=== PATIENT | female | born 1945 | race Caucasian/White ===

== ENCOUNTER 2016-05-27 09:40 | Inpatient (IN) | payer MEDICARE ==
[~2016-05-27] VITALS: Ht 167.6 cm; Wt 79.8 kg
[2016-05-27] VITALS (18 sets, daily range): BP systolic 151–213; BP diastolic 73–124; PULSE 53–173; RESP 18–24; TEMP 98.4–98.7; O2SAT 95–100
[~2016-05-27 09:40] MED LIST: CIPR500T4 PO; PYRI200T4 PO; SYNT25TA PO
[2016-05-27] MEDS ORDERED: MULTTAB67 PO (10:11)
[2016-05-27] MEDS ORDERED: FISHCAP4 PO (10:11)
[2016-05-27] MEDS ORDERED: LEVO.1 PO (10:11)
--- NOTE | 2016-05-27 10:11 | PD ---
HPI Chief Complaint: Chest Pain Time Seen by Provider: 10:04 Travel History International Travel<30 days: No Contact w/Intl Traveler<30days: No Traveled to known affect area: No History of Present Illness HPI 70-year-old female with history of hypothyroidism currently on Synthroid, presents to the ER today for substernal chest discomfort which she rates at a 3 out of 10, palpitations, lightheadedness. She states that she has had intermittent episodes in the past but he usually subsides on its own. She states that this episode did not subside. She does not know of any exacerbating or alleviating factors although episodes in the past had subsided when she relaxed. Modifying Factors: None Associated Signs & Symptoms: Palpitation, substernal chest discomfort, lightheadedness Risk Factors: None PFSH Past Medical History Diminished Hearing: No Thyroid Disease: Yes Social History Alcohol Use: No Tobacco Use: No Substance Use: No Allergies-Medications (Allergen,Severity, Reaction): Coded Allergies: No Known Allergies (Unverified , 05/27/16) Reported Meds & Prescriptions Reported Meds & Active Scripts Active Reported Multiple Vitamin 1 Tab 1 Tab PO DAILY Synthroid (Levothyroxine Sodium) 100 Mcg Tab 100 Mcg PO DAILY Review of Systems Except as stated in HPI: all other systems reviewed are Neg Physical Exam Narrative GENERAL: Elderly white female patient who is well-developed, awake, alert, in mild distress. SKIN: Focused skin assessment warm/dry. HEAD: Atraumatic. Normocephalic. EYES: Pupils equal and round. No scleral icterus. No injection or drainage. ENT: No nasal bleeding or discharge. Mucous membranes pink and moist. NECK: Trachea midline. No JVD. CARDIOVASCULAR: Fast and regular,. No murmur appreciated. Pulses are present and equal bilaterally. RESPIRATORY: No accessory muscle use. Clear to auscultation. Breath sounds equal bilaterally. GASTROINTESTINAL: Abdomen soft, non-tender, nondistended. Hepatic and splenic margins not palpable. MUSCULOSKELETAL: No obvious deformities. No clubbing. No cyanosis. No edema. NEUROLOGICAL: Awake and alert. No obvious cranial nerve deficits. Motor grossly within normal limits. Normal speech. PSYCHIATRIC: Appropriate mood and affect; insight and judgment normal. Data Data Last Documented VS Vital Signs Date Time Temp Pulse Resp B/P Pulse Ox O2 Delivery O2 Flow Rate FiO2 05/27/16 11:35 68 18 161/76 98 Nasal Cannula 2 05/27/16 09:41 98.4 Orders Electrocardiogram (05/27/16 10:04) Ckmb (Isoenzyme) Profile (05/27/16 10:04) Complete Blood Count With Diff (05/27/16 10:04) Comprehensive Metabolic Panel (05/27/16 10:04) Magnesium (Mg) (05/27/16 10:04) Prothrombin Time / Inr (Pt) (05/27/16 10:04) Act Partial Throm Time (Ptt) (05/27/16 10:04) Troponin I (05/27/16 10:04) Chest, Single Ap (05/27/16 10:04) Ecg Monitoring (05/27/16 10:04) Bilateral Bp Monitoring (05/27/16 10:04) Iv Access Insert/Monitor (05/27/16 10:04) Oximetry (05/27/16 10:04) Oxygen Administration (05/27/16 10:04) Sodium Chloride 0.9% Flush (Ns Flush) (05/27/16 10:15) Diltiazem Inj (Cardizem Inj) (05/27/16 10:15) Diltiazem Inj (Cardizem Inj) (05/27/16 10:15) Sodium Chloride 0.9% Flush (Ns Flush) (05/27/16 10:15) Admit Order (Ed Use Only) (05/27/16 11:49) Labs Laboratory Tests Test 05/27/16 10:05 White Blood Count 6.9 TH/MM3 Red Blood Count 5.16 MIL/MM3 Hemoglobin 14.7 GM/DL Hematocrit 44.6 % Mean Corpuscular Volume 86.6 FL Mean Corpuscular Hemoglobin 28.6 PG Mean Corpuscular Hemoglobin 33.0 % Concent Red Cell Distribution Width 13.4 % Platelet Count 248 TH/MM3 Mean Platelet Volume 8.3 FL Neutrophils (%) (Auto) 51.3 % Lymphocytes (%) (Auto) 35.8 % Monocytes (%) (Auto) 10.7 % Eosinophils (%) (Auto) 1.9 % Basophils (%) (Auto) 0.3 % Neutrophils # (Auto) 3.5 TH/MM3 Lymphocytes # (Auto) 2.5 TH/MM3 Monocytes # (Auto) 0.7 TH/MM3 Eosinophils # (Auto) 0.1 TH/MM3 Basophils # (Auto) 0.0 TH/MM3 CBC Comment DIFF FINAL Differential Comment Prothrombin Time 10.0 SEC Prothromb Time International 0.9 RATIO Ratio Activated Partial 26.8 SEC Thromboplast Time Sodium Level 139 MEQ/L Potassium Level 3.9 MEQ/L Chloride Level 103 MEQ/L Carbon Dioxide Level 28.1 MEQ/L Anion Gap 8 MEQ/L Blood Urea Nitrogen 15 MG/DL Creatinine 0.74 MG/DL Estimat Glomerular Filtration 77 ML/MIN Rate Random Glucose 102 MG/DL Calcium Level 9.5 MG/DL Magnesium Level 2.3 MG/DL Total Bilirubin 0.3 MG/DL Aspartate Amino Transf 20 U/L (AST/SGOT) Alanine Aminotransferase 25 U/L (ALT/SGPT) Alkaline Phosphatase 105 U/L Total Creatine Kinase 72 U/L Troponin I LESS THAN 0.02 NG/ML Total Protein 8.2 GM/DL Albumin 3.8 GM/DL MDM Medical Decision Making Medical Screen Exam Complete: Yes Emergency Medical Condition: Yes Medical Record Reviewed: Yes Interpretation(s) EKG shows atrial flutter with rapid ventricular response at a rate of 160 bpm. Laboratory Tests Test 05/27/16 10:05 Monocytes (%) (Auto) 10.7 % (0.0-8.0) Estimat Glomerular Filtration 77 ML/MIN (>89) Rate Troponin I LESS THAN 0.02 NG/ML (0.02-0.05) Last 24 hours Impressions Chest X-Ray 05/27/16 1004 Signed Impressions: Service Date/Time: Friday, May 27, 2016 10:09 - CONCLUSION: The lungs are clear. Salbador Garsia MD Repeat EKG shows normal sinus rhythm at a rate of 80 bpm with a right bundle branch block pattern. Differential Diagnosis Dysrhythmias versus ACS versus thyroid storm versus overmedication versus electrolyte abnormalities Narrative Course Patient was given Cardizem in the ER with resolution of tachycardia, patient was back in normal sinus rhythm at a rate of 80 bpm. Lab work did not indicate any significant electrolyte abnormalities or dehydration. At this point, my plan would be to admit the patient for further evaluation of dysrhythmia. Case was discussed with Dr. Jc for admission. Diagnosis Primary Impression: Atrial flutter with rapid ventricular response Admitting Information Admitting Physician Requests: Admit Soontharothai,Rewadee MD May 27, 2016 10:11
[2016-05-27] MEDS ORDERED: DILTIAZEM INJ 125 MG in SODIUM CHLORIDE 0.9% INJ 100 ML IV SCH (10:15)
[2016-05-27] MEDS ORDERED: DILTIAZEM HCL 25 MG/5 ML VIAL IV PUSH ONE (10:15)
[2016-05-27] MEDS ORDERED: SODIUM CHLORIDE 0.9% FLUSH 10 ML FLUSH IVF PRN ×2 (10:15)
[2016-05-27 10:37] LABS: AUTOMATED NEUTROPHIL # 3.5 TH/MM3 (1.8-7.7); BASOPHIL % 0.3 % (0.0-2.0); EOSINOPHIL # 0.1 TH/MM3 (0-0.4); EOSINOPHIL % 1.9 % (0.0-4.0); HEMATOCRIT 44.6 % (35.0-46.0); HEMO FLAGS DIFF FINAL; LYMPH % 35.8 % (9.0-44.0); LYMPHOCYTE # 2.5 TH/MM3 (1.0-4.8); MEAN CELL VOLUME 86.6 FL (80.0-100.0); MEAN CORPUSCULAR HEMOGLOBIN 28.6 PG (27.0-34.0); MONO % 10.7 % (0.0-8.0); NEUT % 51.3 % (16.0-70.0); PLATELET COUNT 248 TH/MM3 (150-450); RED BLOOD COUNT 5.16 MIL/MM3 (4.00-5.30); RED CELL DISTRIBUTION WIDTH 13.4 % (11.6-17.2); WHITE BLOOD COUNT 6.9 TH/MM3 (4.0-11.0)
[2016-05-27 10:46] LABS: APTT (PATIENT) 26.8 SEC (24.3-30.1); INTERNATIONAL NORMALIZED RATIO 0.9 RATIO
--- NOTE | 2016-05-27 10:49 | RADRPT ---
EXAM DATE/TIME: 05/27/2016 10:09 [facility] COMPARISON: No previous studies available for comparison. INDICATIONS : Chest pain MEDICAL HISTORY : None. SURGICAL HISTORY : None. ENCOUNTER: Initial ACUITY: 1 day PAIN SCORE: 5/10 LOCATION: Bilateral chest FINDINGS: A single view of the chest demonstrates the lungs to be symmetrically aerated without evidence of mas s, infiltrate or effusion. The cardiomediastinal contours are unremarkable. Osseous structures are intact. CONCLUSION: The lungs are clear. Salbador Garsia MD on May 27, 2016 at 10:47 Board Certified Radiologist. This report was verified electronically.
[2016-05-27 10:55] LABS: ANION GAP 8 MEQ/L (5-15); BICARBONATE 28.1 MEQ/L (21.0-32.0); BLOOD UREA NITROGEN 15 MG/DL (7-18); CHLORIDE 103 MEQ/L (98-107); GLOMERULAR FILTRATION RATE 77 ML/MIN (>89); MAGNESIUM 2.3 MG/DL (1.5-2.5); POTASSIUM 3.9 MEQ/L (3.5-5.1); SODIUM (NA) 139 MEQ/L (136-145)
[2016-05-27 11:00] LABS: ALKALINE PHOSPHATASE 105 U/L (45-117); ALT (GPT) 25 U/L (10-53); AST (GOT) 20 U/L (15-37); CREATINE KINASE 72 U/L (26-192); TOTAL BILIRUBIN ADULT 0.3 MG/DL (0.2-1.0)
[2016-05-27] MEDS ORDERED: ALUMINUM/MAGNESIUM/SIMETH 30 ML CUP PO PRN (12:00)
[2016-05-27] MEDS ORDERED: TEMAZEPAM 15 MG CAP PO PRN (12:00)
[2016-05-27] MEDS ORDERED: ONDANSETRON HCL 4 MG/2 ML VIAL IV PRN (12:00)
[2016-05-27] MEDS ORDERED: ACETAMINOPHEN 325 MG TAB PO PRN (12:00)
[2016-05-27] MEDS ORDERED: SODIUM CHLORIDE 0.9% FLUSH 10 ML FLUSH IV FLUSH PRN (12:00)
[2016-05-27] MEDS ORDERED: DOCUSATE SODIUM 100 MG CAP PO PRN (12:00)
[2016-05-27] MEDS ORDERED: RESP: ALBUTEROL 2.5 MG/IPRATROPIUM 0.5 MG NEB (PRN) NEB (12:15)
[2016-05-27] MEDS: ENOXAPARIN SODIUM 40 MG/0.4 ML SYRINGE SQ SCH (12:50)
--- NOTE | 2016-05-27 13:22 | HHI.HP ---
[facility] Service [facility] Primary Care Physician Vel Pandey MD Admission Diagnosis new onset atrial flutter with rapid ventricular response Diagnoses: (1) Atrial flutter with rapid ventricular response (2) Hypertensive emergency (3) Hypothyroidism Chief Complaint: Heart palpitation and chest tightness Travel History International Travel<30 Days: No Contact w/Intl Traveler <30 Da: No Traveled to Known Affected Are: No History of Present Illness Everyone year-old female with a history of hypothyroidism presented to the ED for evaluation of an acute onset of worsening heart palpitations associated with chest tightness, diaphoresis and headache. Patient reports history of occasional heart palpitation however those seem to resolved on their own until today when patient had breakfast then she started feeling her heart racing associated with chest tightness rated 3/10 in intensity. She then decided to check her blood pressure, which she found to be elevated with systolic of 176. Last blood pressure check less than 2 weeks ago was 120/80s obtained with a new blood pressure device. She denies any GI bleed. Review of Systems Other 12 systems reviewed and are negative except for the one mentioned in history of present illness Past Family Social History Past Medical History Hypothyroidism Past Surgical History Tubal ligation Reported Medications Synthroid Allergies: Coded Allergies: No Known Allergies (Unverified , 05/27/16) Family History Strong family history of heart disease for mom and sister with pacemaker implantation Social History She denies tobacco, alcohol or illicit drug intake Physical Exam Vital Signs Vital Signs Date Time Temp Pulse Resp B/P Pulse Ox O2 Delivery O2 Flow Rate FiO2 05/27/16 12:30 62 18 158/85 98 Nasal Cannula 2 05/27/16 12:01 65 18 151/76 98 Nasal Cannula 2 05/27/16 11:35 68 18 161/76 98 Nasal Cannula 2 05/27/16 11:03 180/92 05/27/16 10:09 99 Nasal Cannula 2 05/27/16 10:07 159 21 208/122 Nasal Cannula 2 213/124 05/27/16 10:07 99 Nasal Cannula 2 05/27/16 09:56 98 Room Air 2 05/27/16 09:41 98.4 173 24 213/124 97 Physical Exam GENERAL: This is a well-nourished, well-developed patient, in no apparent distress. SKIN: No rashes, ecchymoses or lesions. Cool and dry. HEAD: Atraumatic. Normocephalic. No temporal or scalp tenderness. EYES: Pupils equal round and reactive. Extraocular motions intact. No scleral icterus. No injection or drainage. ENT: Nose without bleeding, purulent drainage or septal hematoma. Throat without erythema, tonsillar hypertrophy or exudate. Uvula midline. Airway patent. NECK: Trachea midline. No JVD or lymphadenopathy. Supple, nontender, no meningeal signs. CARDIOVASCULAR: Irregular Regular rate and rhythm without murmurs, gallops, or rubs. RESPIRATORY: Clear to auscultation. Breath sounds equal bilaterally. No wheezes , rales, or rhonchi. GASTROINTESTINAL: Abdomen soft, non-tender, nondistended. No hepato-splenomegaly , or palpable masses. No guarding. MUSCULOSKELETAL: Extremities without clubbing, cyanosis, or edema. No joint tenderness, effusion, or edema noted. No calf tenderness. Negative Homans sign bilaterally. NEUROLOGICAL: Awake and alert. Cranial nerves II through XII intact. Motor and sensory grossly within normal limits. Five out of 5 muscle strength in all muscle groups. Normal speech. Laboratory Laboratory Tests Test 05/27/16 10:05 White Blood Count 6.9 Red Blood Count 5.16 Hemoglobin 14.7 Hematocrit 44.6 Mean Corpuscular Volume 86.6 Mean Corpuscular Hemoglobin 28.6 Mean Corpuscular Hemoglobin 33.0 Concent Red Cell Distribution Width 13.4 Platelet Count 248 Mean Platelet Volume 8.3 Neutrophils (%) (Auto) 51.3 Lymphocytes (%) (Auto) 35.8 Monocytes (%) (Auto) 10.7 Eosinophils (%) (Auto) 1.9 Basophils (%) (Auto) 0.3 Neutrophils # (Auto) 3.5 Lymphocytes # (Auto) 2.5 Monocytes # (Auto) 0.7 Eosinophils # (Auto) 0.1 Basophils # (Auto) 0.0 CBC Comment DIFF FINAL Differential Comment Prothrombin Time 10.0 Prothromb Time International 0.9 Ratio Activated Partial 26.8 Thromboplast Time Sodium Level 139 Potassium Level 3.9 Chloride Level 103 Carbon Dioxide Level 28.1 Anion Gap 8 Blood Urea Nitrogen 15 Creatinine 0.74 Estimat Glomerular Filtration 77 Rate Random Glucose 102 Calcium Level 9.5 Magnesium Level 2.3 Total Bilirubin 0.3 Aspartate Amino Transf 20 (AST/SGOT) Alanine Aminotransferase 25 (ALT/SGPT) Alkaline Phosphatase 105 Total Creatine Kinase 72 Troponin I LESS THAN 0.02 Total Protein 8.2 Albumin 3.8 Result Diagram: 05/27/16 1005 05/27/16 1005 Imaging Last Impressions Chest X-Ray 05/27/16 1004 Signed Impressions: Service Date/Time: Friday, May 27, 2016 10:09 - CONCLUSION: The lungs are clear. Salbador Garsia MD Assessment and Plan Problem List: (1) Atrial flutter with rapid ventricular response ICD Code: I48.92 Status: Acute (2) Hypertensive emergency ICD Code: I16.1 Status: Acute (3) Hypothyroidism ICD Code: E03.9 Status: Acute Assessment and Plan 70-year-old female with Atrial flutter with rapid ventricular response: Chest x-ray noted and reviewed by me without any other pulmonary disease. Rule out ACS per protocol with serial cardiac enzyme and EKG. Check TSH and free T4. Currently on Cardizem drip however patient is currently rate control therefore will discontinue it Check 2-D echo. Consult cardiology as patient with [id number] and will need to be on oral anticoagulation. Check lipid profile Hypertensive emergency: On Arrival patient with BP of 213/124 however now improved with BP 158/85; will start oral antihypertensive medication Lopressor 50 mg by mouth twice a day tonight. Check lipid profile as well as hemoglobin A1c History of hypothyroidism: Check TSH and free T4, resume Synthroid and adjust dose accordingly DVT prophylaxis: Lovenox Code Status Full code Discussed Condition With Patient Physician Certification 2 Midnight Certification Type: Admission for Inpatient Services Order for Inpatient Services The services are ordered in accordance with Medicare regulations or non- Medicare payer requirements, as applicable. In the case of services not specified as inpatient-only, they are appropriately provided as inpatient services in accordance with the 2-midnight benchmark. Estimated LOS (days): 2 days is the estimated time the patient will need to remain in the hospital, assuming treatment plan goals are met and no additional complications. Post-Hospital Plan: Not yet determined Oc Jc MD May 27, 2016 13:21
[2016-05-27] MEDS ORDERED: hydrALAZINE HCL 20 MG/ML VIAL IV PUSH PRN (14:15)
--- NOTE | 2016-05-27 14:34 | EKG ---
Date Performed: 05/27/2016 Time Performed: 10:00:47 PTAGE: 70 years EKG: Supraventricular tachycardia RIGHT bundle branch block Nonspecific ST-T wave changes NO PREVIOUS TRACING DOCTOR: Salvatore Bashir Interpretating Date/Time 05/27/2016 14:33:44
--- NOTE | 2016-05-27 16:50 | EC ---
Study Study Date:05/27/2016 STUDY CONCLUSIONS SUMMARY LEFT VENTRICLE: The cavity size was normal. Wall thickness was normal. Systolic function was normal. The estimated ejection fraction was in the range of 60% to 65%. Wall motion was normal; there were no regional wall motion abnormalities. If LV function is below 40, please consider prescribing an ACEI or ARB or document rationale for non-use. PROCEDURE DATA STUDY STATUS: Elective. Procedure: Transthoracic echocardiography. Image quality was good. Scanning was performed from the parasternal, apical, and subcostal acoustic windows. Study completion: The patient tolerated the procedure well. Transthoracic echocardiography. M-mode, complete 2D, complete spectral Doppler, and color Doppler. Patient status: Inpatient. CARDIAC ANATOMY LEFT VENTRICLE: The cavity size was normal. Wall thickness was normal. Systolic function was normal. The estimated ejection fraction was in the range of 60% to 65%. Wall motion was normal; there were no regional wall motion abnormalities. AORTIC VALVE: Trileaflet; normal thickness leaflets. Doppler: Transvalvular velocity was within the normal range. There was no stenosis. No regurgitation. Mean gradient: 11mm Hg (S). Peak gradient: 22mm Hg (S). AORTA: Aortic root: The aortic root was normal in size. MITRAL VALVE: Structurally normal valve. Doppler: Transvalvular velocity was within the normal range. There was no evidence for stenosis. No regurgitation. Peak gradient: 2mm Hg (D). LEFT ATRIUM: The atrium was normal in size. RIGHT VENTRICLE: The cavity size was normal. Wall thickness was normal. PULMONIC VALVE: Doppler: Transvalvular velocity was within the normal range. There was no evidence for stenosis. No regurgitation. TRICUSPID VALVE: Structurally normal valve. Doppler: Transvalvular velocity was within the normal range. No regurgitation. PULMONARY ARTERY: The main pulmonary artery was normal-sized. Systolic pressure was within the normal range. RIGHT ATRIUM: The atrium was normal in size. PERICARDIUM: There was no pericardial effusion. SYSTEMIC VEINS: Inferior vena cava: The vessel was normal in size. BASIC MEASUREMENTS ADULT Normal Left ventricle LV internal dimension, ED, chordal level, *54.5 mm 43-52 PLAX LV internal dimension, ES, chordal level, 37.2 mm 23-38 PLAX Fractional shortening, chordal level, PLAX 32 % >29 LV posterior wall thickness, ED 8.17 mm IVS/LVPW ratio, ED *1.31 <1.3 Ventricular septum Septal thickness, ED 10.7 mm Aortic valve Leaflet separation 19 mm 15-26 Left atrium Anterior-posterior dimension 38 mm Right ventricle RV internal dimension, ED, PLAX 19.5 mm 19-38 BASIC MEASUREMENTS ADULT Normal Aortic valve Leaflet separation 19 mm 15-26 Aorta Root diameter, ED 28 mm 20-37 DOPPLER MEASUREMENTS ADULT Normal Main pulmonary artery Pressure, S 24 mm Hg =30 Aortic valve Peak velocity, S 236 cm/s Mean velocity, S 145 cm/s VTI, S 47.1 cm Mean gradient, S 11 mm Hg Peak gradient, S 22 mm Hg Mitral valve Peak E-wave velocity 71 cm/s Peak A-wave velocity 84.5 cm/s Peak gradient, D 2 mm Hg Peak E/A ratio 0.8 Tricuspid valve Regurgitant peak velocity 191 cm/s Peak RV-RA gradient, S 15 mm Hg Maximal regurgitant velocity 191 cm/s Systemic veins Estimated CVP 5 mm Hg Right ventricle RV pressure, S 24 mm Hg <30 LEGEND: Mean values are shown as u=mean value. Asterisk (*) salas values outside specified normal range. Prepared and signed by Jaleesa Hernandez [id number]
--- NOTE | 2016-05-27 19:07 | MB ---
cc: MICHAEL SPAULDING MD DATE OF CONSULTATION 05/27/16 HISTORY OF PRESENT ILLNESS Ms. Carson is a 70 year old white female with a history of hypothyroidism. She developed palpitation associated with chest tightness and diaphoresis, generalized weakness and headache. She came to the emergency room. She was found to have severe hypertension and was in atrial flutter with rapid ventricular response. She was given IV Diltiazem and spontaneously converted to sinus rhythm. Her symptoms improved after she converted, but she remained hypertensive and has required antihypertensive therapy. She still complains of headache. PAST MEDICAL HISTORY 1. Hypothyroidism. No history of hypertension, dyslipidemia, coronary artery disease or cerebrovascular accident. 2. History of tubal ligation MEDICATIONS Synthroid ALLERGIES None. SOCIAL HISTORY The patient does not smoke. She does not drink alcohol. FAMILY HISTORY Positive for pacemaker placement in both her mother and sister. REVIEW OF SYSTEMS Otherwise negative. PHYSICAL EXAMINATION VITAL SIGNS: Blood pressure 161/72, pulse 92 and regular. HEENT: Negative, 2+ carotid upstrokes, no bruits. LUNGS: Clear. HEART: Regular with no murmurs, rubs or gallops ABDOMEN: Soft, no bruits. EXTREMITIES: Without edema, 2+ distal pulses. NEUROLOGIC: Grossly nonfocal. CARDIOLOGY STUDIES Electrocardiogram initially showed atrial flutter with 2:1 block and right bundle branch block. Follow up electrocardiogram showed sinus rhythm and right bundle branch block. LABORATORY DATA Hemoglobin 14.7, potassium 3.9, creatinine 0.7, magnesium 2.3, AST and ALT normal. CK 72, troponin less than 0.02. DIAGNOSES 1. Paroxysmal atrial flutter with rapid ventricular response. 2. Unspecified angina 3. Hypertensive emergency 4. Hypothyroidism DISPOSITION Ms. Carson will be monitored on telemetry with serial enzymes and electrocardiograms. We will obtain echocardiogram to evaluate her left ventricular function. We will check thyroid function since she is on thyroid replacement. I recommend to start anticoagulation with a novel anticoagulant (Xarelto). This can be started once her blood pressure is better controlled. I recommend to titrate antihypertensive therapy; Lopressor will be started tonight. I will follow Ms. Carson for cardiology during her hospitalization. I will also see her back for followup in our office after discharge. MD MARKY Owusu/ /4:21 PM /6:55 PM CARMEL
[2016-05-27] MEDS: METOPROLOL TARTRATE 50 MG TAB PO SCH (20:49)
[2016-05-27] MEDS: SODIUM CHLORIDE 0.9% FLUSH 10 ML FLUSH IV FLUSH SCH (20:49)
[2016-05-27 23:50] LABS: FREE T4 1.15 NG/DL (0.76-1.46)
[2016-05-28] VITALS (24 sets, daily range): BP systolic 126–163; BP diastolic 64–79; PULSE 42–96; RESP 14–18; TEMP 97.3–98.8; O2SAT 95–98
--- NOTE | 2016-05-28 00:02 | EKG ---
Date Performed: 05/27/2016 Time Performed: 10:57:31 PTAGE: 70 years EKG: Sinus rhythm RIGHT BUNDLE BRANCH BLOCK MARKED T-WAVE ABNORMALITY, CONSIDER ANTEROLATERAL ISCHEMIA ABNORMAL ECG PREVIOUS TRACING : 05/27/2016 10.00 Compared to the previous tracing, previously aflutter with rapid ventricular response, ST/T wave changes are now more prominent DOCTOR: Shay Fiore Interpretating Date/Time 05/28/2016 00:00:25
[2016-05-28 06:18] LABS: HEMATOCRIT 39.8 % (35.0-46.0); MEAN CELL VOLUME 86.6 FL (80.0-100.0); MEAN CORPUSCULAR HEMOGLOBIN 29.3 PG (27.0-34.0); MEAN CORPUSCULAR HGB CONC 33.9 % (32.0-36.0); PLATELET COUNT 277 TH/MM3 (150-450); RED CELL DISTRIBUTION WIDTH 13.4 % (11.6-17.2); REVIEW FLAG FINAL
[2016-05-28] MEDS: LEVOTHYROXINE SODIUM 100 MCG TAB PO SCH (06:29)
[2016-05-28 06:47] LABS: LDL CHOLESTEROL 142 MG/DL (0-99)
[2016-05-28] MEDS: MULTIVITAMIN TAB PO SCH (09:09)
[2016-05-28] MEDS: SODIUM CHLORIDE 0.9% FLUSH 10 ML FLUSH IV FLUSH SCH ×2 (09:09→21:00)
[2016-05-28] MEDS: METOPROLOL TARTRATE 50 MG TAB PO SCH (09:09)
--- NOTE | 2016-05-28 13:23 | HHI.PR ---
Subjective Remarks Follow-up atrial fibrillation with RVR/benign labile hypertension 05/28/16-patient seen and examined, denies any chest pain or heart palpitation. Bradycardia however asymptomatic Objective Vitals Vital Signs Date Time Temp Pulse Resp B/P Pulse Ox O2 Delivery O2 Flow Rate FiO2 05/28/16 12:00 54 05/28/16 12:00 98.6 48 18 139/64 98 05/28/16 11:10 58 05/28/16 10:00 51 05/28/16 09:00 96 05/28/16 08:09 56 05/28/16 08:09 98.5 50 18 144/73 98 05/28/16 07:00 48 05/28/16 06:00 46 05/28/16 05:00 62 05/28/16 04:00 98.8 52 18 126/74 95 05/28/16 04:00 46 05/28/16 03:00 70 05/28/16 02:00 52 05/28/16 01:00 52 05/28/16 00:00 58 05/28/16 00:00 98.4 59 14 139/78 96 05/27/16 23:00 53 05/27/16 22:00 60 05/27/16 21:00 78 05/27/16 20:00 98.6 85 22 155/73 95 05/27/16 20:00 84 05/27/16 19:00 107 05/27/16 17:00 76 05/27/16 16:00 88 05/27/16 16:00 98.4 83 18 158/73 98 05/27/16 15:00 90 05/27/16 14:50 92 18 161/74 99 05/27/16 14:00 98.7 92 18 183/89 100 I/O 05/27/16 05/27/16 05/27/16 05/28/16 05/28/16 05/28/16 07:00 15:00 23:00 07:00 15:00 23:00 Intake Total 240 ml Output Total 300 ml Balance -60 ml Intake Oral 240 ml Output Urine Total 300 ml Result Diagram: 05/28/16 0555 05/27/16 1005 Imaging Last Impressions Chest X-Ray 05/27/16 1004 Signed Impressions: Service Date/Time: Friday, May 27, 2016 10:09 - CONCLUSION: The lungs are clear. Salbador Garsia MD Objective Remarks GENERAL: NAD SKIN: Warm and dry. HEAD: Normocephalic. EYES: No scleral icterus. No injection or drainage. NECK: Supple, trachea midline. No JVD or lymphadenopathy. CARDIOVASCULAR: Irregular Regular rate and rhythm without murmurs, gallops, or rubs. RESPIRATORY: Breath sounds equal bilaterally. No accessory muscle use. GASTROINTESTINAL: Abdomen soft, non-tender, nondistended. MUSCULOSKELETAL: No cyanosis, or edema. BACK: Nontender without obvious deformity. No CVA tenderness. A/P Problem List: (1) Atrial flutter with rapid ventricular response ICD Code: I48.92 Status: Acute (2) Hypertensive emergency ICD Code: I16.1 Status: Resolved (3) Hypothyroidism ICD Code: E03.9 Status: Chronic (4) Hyperlipidemia ICD Code: E78.5 Status: Acute (5) Benign hypertension ICD Code: I10 Status: Acute Assessment and Plan 70-year-old female with Paroxysmal Atrial fibrillation /flutter with rapid ventricular response: s/p Cardizem drip . Currently on Lopressor 50 mg by mouth twice a day however patient with bradycardia although asymptomatic. cardiology ff .patient with [id number] and patient will need OAC likely Xarelto. 2-D echo with EF of 60 -% Hypertensive emergency: Resolved and currently on Lopressor 50 mg by mouth twice . However secondary to bradycardia would adjust medication accordingly. Hyperlipidemia: LDL 142 therefore will Start Lipitor 20 mg at bedtime tonight History of hypothyroidism: TSH and free T4 wnl, continue Synthroid DVT prophylaxis: Oc Keen MD May 28, 2016 13:23
[2016-05-28] MEDS: ENOXAPARIN SODIUM 40 MG/0.4 ML SYRINGE SQ SCH (13:42)
--- NOTE | 2016-05-28 15:55 | PD.CARD.PN ---
Subjective Subjective Remarks No CP or SOB, feels much better Objective Medications Current Medications Medications (Trade) Dose Ordered Sig/Germain Route Start Time Stop Time Status Last Admin (NS Flush) 2 ml UNSCH PRN IV FLUSH 05/27/16 12:00 (NS Flush) 2 ml BID IV FLUSH 05/27/16 21:00 05/28/16 09:09 (Lovenox Inj) 40 mg Q24H SQ 05/27/16 13:00 05/28/16 13:42 (Tylenol) 650 mg Q4H PRN PO 05/27/16 12:00 (Zofran Inj) 4 mg Q6H PRN IV 05/27/16 12:00 (Colace) 100 mg BID PRN PO 05/27/16 12:00 (Mag-Al Plus Susp Liq) 30 ml Q6H PRN PO 05/27/16 12:00 (Restoril) 15 mg HS PRN PO 05/27/16 12:00 (Synthroid) 100 mcg DAILY@0600 PO 05/28/16 06:00 05/28/16 06:29 (Theragran) 1 tab DAILY PO 05/28/16 09:00 05/28/16 09:09 (Lopressor) 50 mg Q12HR PO 05/27/16 21:00 05/28/16 09:09 (Apresoline Inj) 20 mg Q4H PRN IV PUSH 05/27/16 14:15 05/27/16 14:25 (Lipitor) 20 mg HS PO 05/28/16 21:00 Vital Signs / I&O Vital Signs Date Time Temp Pulse Resp B/P Pulse Ox O2 Delivery O2 Flow Rate FiO2 05/28/16 15:00 45 05/28/16 14:04 46 05/28/16 13:00 48 05/28/16 12:00 54 05/28/16 12:00 98.6 48 18 139/64 98 05/28/16 11:10 58 05/28/16 10:00 51 05/28/16 09:00 96 05/28/16 08:09 56 05/28/16 08:09 98.5 50 18 144/73 98 05/28/16 07:00 48 05/28/16 06:00 46 05/28/16 05:00 62 05/28/16 04:00 98.8 52 18 126/74 95 05/28/16 04:00 46 05/28/16 03:00 70 05/28/16 02:00 52 05/28/16 01:00 52 05/28/16 00:00 58 05/28/16 00:00 98.4 59 14 139/78 96 05/27/16 23:00 53 05/27/16 22:00 60 05/27/16 21:00 78 05/27/16 20:00 98.6 85 22 155/73 95 05/27/16 20:00 84 05/27/16 19:00 107 05/27/16 17:00 76 05/27/16 16:00 88 05/27/16 16:00 98.4 83 18 158/73 98 I/O 05/27/16 05/27/16 05/27/16 05/28/16 05/28/16 05/28/16 07:00 15:00 23:00 07:00 15:00 23:00 Intake Total 240 ml Output Total 300 ml Balance -60 ml Intake Oral 240 ml Output Urine Total 300 ml Physical Exam GENERAL: In NAD SKIN: Warm and dry. HEAD: Normocephalic. EYES: No scleral icterus. No injection or drainage. NECK: Supple, trachea midline. No JVD or lymphadenopathy. CARDIOVASCULAR: Regular rate and rhythm without murmurs, gallops, or rubs. RESPIRATORY: Breath sounds equal bilaterally. No accessory muscle use. GASTROINTESTINAL: Abdomen soft, non-tender, nondistended. MUSCULOSKELETAL: No cyanosis, or edema. Laboratory Laboratory Tests Test 05/27/16 05/27/16 05/28/16 17:50 22:34 05:55 Total Creatine Kinase 72 U/L 62 U/L Troponin I 0.05 NG/ML 0.06 NG/ML Free Thyroxine 1.15 NG/DL Thyroid Stimulating Hormone 1.280 uIU/ML 3rd Gen White Blood Count 7.0 TH/MM3 Red Blood Count 4.60 MIL/MM3 Hemoglobin 13.5 GM/DL Hematocrit 39.8 % Mean Corpuscular Volume 86.6 FL Mean Corpuscular Hemoglobin 29.3 PG Mean Corpuscular Hemoglobin 33.9 % Concent Red Cell Distribution Width 13.4 % Platelet Count 277 TH/MM3 Mean Platelet Volume 8.4 FL Triglycerides Level 118 MG/DL Cholesterol Level 228 MG/DL LDL Cholesterol 142 MG/DL HDL Cholesterol 62.0 MG/DL Cholesterol/HDL Ratio 3.67 RATIO Imaging Last Impressions Chest X-Ray 05/27/16 1004 Signed Impressions: Service Date/Time: Friday, May 27, 2016 10:09 - CONCLUSION: The lungs are clear. Salbador Garsia MD Assessment and Plan Problem List: (1) Atrial flutter with rapid ventricular response (2) Hypertensive emergency (3) Hypothyroidism (4) Hyperlipidemia (5) Angina pectoris, unspecified Assessment and Plan Stays in SR, bradycardic and hypertensive. Decrease metoprolol, add amlodipine. Start anticoagulation with Xarelto. Increase activity. Aggressive risk factor modification. Home tomorrow if stable. Will schedule nuc ST as outpatient. Ricardo Alvarez MD May 28, 2016 15:55
[2016-05-28 16:41] LABS: HEMOGLOBIN A1b 0.8 %; HEMOGLOBIN Ao 85.8 %; HEMOGLOBIN F 1.4 %; HEMOGLOBIN LA1C 1.8 %; HEMOGLOBIN P3 3.5 %
[2016-05-28] MEDS ORDERED: ATORVASTATIN 20 MG TAB PO SCH ×2 (21:00)
[2016-05-28] MEDS: METOPROLOL TARTRATE 25 MG TAB PO SCH (21:00)
[2016-05-29] VITALS (15 sets, daily range): BP systolic 114–154; BP diastolic 60–75; PULSE 40–54; RESP 18; TEMP 97.3–98.3; O2SAT 97–99
[2016-05-29] MEDS: LEVOTHYROXINE SODIUM 100 MCG TAB PO SCH (05:16)
[2016-05-29] MEDS: MULTIVITAMIN TAB PO SCH (08:52)
[2016-05-29] MEDS: METOPROLOL TARTRATE 25 MG TAB PO SCH (08:53)
[2016-05-29] MEDS: SODIUM CHLORIDE 0.9% FLUSH 10 ML FLUSH IV FLUSH SCH (08:54)
[2016-05-29] MEDS ORDERED: RIVAROXABAN 20 MG TAB PO SCH (09:00)
--- NOTE | 2016-05-29 09:45 | PD.CARD.PN ---
Subjective Subjective Remarks No CP, SOB, or dizziness, feels fine Objective Medications Current Medications Medications (Trade) Dose Ordered Sig/Germain Route Start Time Stop Time Status Last Admin (NS Flush) 2 ml UNSCH PRN IV FLUSH 05/27/16 12:00 (NS Flush) 2 ml BID IV FLUSH 05/27/16 21:00 05/29/16 08:54 (Tylenol) 650 mg Q4H PRN PO 05/27/16 12:00 (Zofran Inj) 4 mg Q6H PRN IV 05/27/16 12:00 (Colace) 100 mg BID PRN PO 05/27/16 12:00 (Mag-Al Plus Susp Liq) 30 ml Q6H PRN PO 05/27/16 12:00 (Restoril) 15 mg HS PRN PO 05/27/16 12:00 (Synthroid) 100 mcg DAILY@0600 PO 05/28/16 06:00 05/29/16 05:16 (Theragran) 1 tab DAILY PO 05/28/16 09:00 05/29/16 08:52 (Apresoline Inj) 20 mg Q4H PRN IV PUSH 05/27/16 14:15 05/27/16 14:25 (Lopressor) 25 mg Q12HR PO 05/28/16 21:00 (Norvasc) 10 mg DAILY PO 05/28/16 16:00 05/29/16 08:52 (Lipitor) 80 mg HS PO 05/28/16 21:00 05/28/16 21:13 (Xarelto) 20 mg DAILY PO 05/29/16 09:00 05/29/16 08:52 Vital Signs / I&O Vital Signs Date Time Temp Pulse Resp B/P Pulse Ox O2 Delivery O2 Flow Rate FiO2 05/29/16 08:42 98 05/29/16 08:30 52 05/29/16 08:30 98.2 52 18 154/72 98 05/29/16 07:00 54 05/29/16 06:04 44 05/29/16 05:00 42 05/29/16 04:47 97.7 49 114/60 97 05/29/16 04:00 42 05/29/16 03:49 45 05/29/16 02:00 42 05/29/16 01:00 44 05/29/16 00:00 40 05/29/16 00:00 97.3 49 129/71 97 05/28/16 23:00 97.3 49 129/71 97 05/28/16 23:00 42 05/28/16 22:00 44 05/28/16 21:00 48 05/28/16 20:00 50 05/28/16 19:00 49 05/28/16 19:00 98.7 52 134/66 96 05/28/16 18:00 51 05/28/16 17:00 44 05/28/16 16:00 44 05/28/16 16:00 98.7 45 18 163/79 98 05/28/16 15:00 45 05/28/16 14:04 46 05/28/16 13:00 48 05/28/16 12:00 54 05/28/16 12:00 98.6 48 18 139/64 98 05/28/16 11:10 58 05/28/16 10:00 51 I/O 05/28/16 05/28/16 05/28/16 05/29/16 05/29/16 05/29/16 07:00 15:00 23:00 07:00 15:00 23:00 Intake Total 240 ml 1080 ml 240 ml Output Total 300 ml 1200 ml 900 ml Balance -60 ml -120 ml -660 ml Intake Oral 240 ml 1080 ml 240 ml Output Urine Total 300 ml 1200 ml 900 ml Physical Exam GENERAL: In NAD SKIN: Warm and dry. HEAD: Normocephalic. EYES: No scleral icterus. No injection or drainage. NECK: Supple, trachea midline. No JVD or lymphadenopathy. CARDIOVASCULAR: Regular rate and rhythm without murmurs, gallops, or rubs. RESPIRATORY: Breath sounds equal bilaterally. No accessory muscle use. GASTROINTESTINAL: Abdomen soft, non-tender, nondistended. MUSCULOSKELETAL: No cyanosis, or edema. Laboratory Laboratory Tests Test 05/27/16 05/27/16 05/28/16 10:05 22:34 05:55 Neutrophils (%) (Auto) 51.3 % Lymphocytes (%) (Auto) 35.8 % Monocytes (%) (Auto) 10.7 % Eosinophils (%) (Auto) 1.9 % Basophils (%) (Auto) 0.3 % Neutrophils # (Auto) 3.5 TH/MM3 Lymphocytes # (Auto) 2.5 TH/MM3 Monocytes # (Auto) 0.7 TH/MM3 Eosinophils # (Auto) 0.1 TH/MM3 Basophils # (Auto) 0.0 TH/MM3 CBC Comment DIFF FINAL Differential Comment Prothrombin Time 10.0 SEC Prothromb Time International 0.9 RATIO Ratio Activated Partial 26.8 SEC Thromboplast Time Sodium Level 139 MEQ/L Potassium Level 3.9 MEQ/L Chloride Level 103 MEQ/L Carbon Dioxide Level 28.1 MEQ/L Anion Gap 8 MEQ/L Blood Urea Nitrogen 15 MG/DL Creatinine 0.74 MG/DL Estimat Glomerular Filtration 77 ML/MIN Rate Random Glucose 102 MG/DL Calcium Level 9.5 MG/DL Magnesium Level 2.3 MG/DL Total Bilirubin 0.3 MG/DL Aspartate Amino Transf 20 U/L (AST/SGOT) Alanine Aminotransferase 25 U/L (ALT/SGPT) Alkaline Phosphatase 105 U/L Total Protein 8.2 GM/DL Albumin 3.8 GM/DL Total Creatine Kinase 62 U/L Troponin I 0.06 NG/ML Free Thyroxine 1.15 NG/DL Thyroid Stimulating Hormone 1.280 uIU/ML 3rd Gen White Blood Count 7.0 TH/MM3 Red Blood Count 4.60 MIL/MM3 Hemoglobin 13.5 GM/DL Hematocrit 39.8 % Mean Corpuscular Volume 86.6 FL Mean Corpuscular Hemoglobin 29.3 PG Mean Corpuscular Hemoglobin 33.9 % Concent Red Cell Distribution Width 13.4 % Platelet Count 277 TH/MM3 Mean Platelet Volume 8.4 FL Hemoglobin A1c 5.3 % Triglycerides Level 118 MG/DL Cholesterol Level 228 MG/DL LDL Cholesterol 142 MG/DL HDL Cholesterol 62.0 MG/DL Cholesterol/HDL Ratio 3.67 RATIO Imaging Last Impressions Chest X-Ray 05/27/16 1004 Signed Impressions: Service Date/Time: Friday, May 27, 2016 10:09 - CONCLUSION: The lungs are clear. Salbador Garsia MD Assessment and Plan Problem List: (1) Atrial flutter with rapid ventricular response (2) Hypertensive emergency (3) Hypothyroidism (4) Hyperlipidemia (5) Angina pectoris, unspecified Assessment and Plan Stays in SR, mild SB. Continue metoprolol and amlodipine. Started anticoagulation with Xarelto. Increase activity. Aggressive risk factor modification. OK to discharge home today. Will schedule nuc ST as outpatient. Quadrat,Otakar MD May 29, 2016 09:45
[2016-05-29] MEDS ORDERED: AMLO10 PO (12:06)
[2016-05-29] MEDS ORDERED: METO25TA3 PO (12:06)
[2016-05-29] MEDS ORDERED: XARE20TA PO (12:06)
[2016-05-29] MEDS ORDERED: ATOR20TA15 PO (12:06)
--- NOTE | 2016-05-29 12:10 | HHI.PR ---
Subjective Remarks Follow-up atrial fibrillation with RVR/benign labile hypertension 05/28/16-patient seen and examined, denies any chest pain or heart palpitation. Bradycardia however asymptomatic 05/29/16-patient seen and examined, denies any heart palpitation. Heart rate mid 50s and patient is asymptomatic. Objective Vitals Vital Signs Date Time Temp Pulse Resp B/P Pulse Ox O2 Delivery O2 Flow Rate FiO2 05/29/16 11:00 54 05/29/16 10:00 53 05/29/16 09:00 52 05/29/16 08:42 98 05/29/16 08:30 52 05/29/16 08:30 98.2 52 18 154/72 98 05/29/16 07:00 54 05/29/16 06:04 44 05/29/16 05:00 42 05/29/16 04:47 97.7 49 114/60 97 05/29/16 04:00 42 05/29/16 03:49 45 05/29/16 02:00 42 05/29/16 01:00 44 05/29/16 00:00 40 05/29/16 00:00 97.3 49 129/71 97 05/28/16 23:00 97.3 49 129/71 97 05/28/16 23:00 42 05/28/16 22:00 44 05/28/16 21:00 48 05/28/16 20:00 50 05/28/16 19:00 49 05/28/16 19:00 98.7 52 134/66 96 05/28/16 18:00 51 05/28/16 17:00 44 05/28/16 16:00 44 05/28/16 16:00 98.7 45 18 163/79 98 05/28/16 15:00 45 05/28/16 14:04 46 05/28/16 13:00 48 I/O 05/28/16 05/28/16 05/28/16 05/29/16 05/29/16 05/29/16 07:00 15:00 23:00 07:00 15:00 23:00 Intake Total 240 ml 1080 ml 240 ml Output Total 300 ml 1200 ml 900 ml Balance -60 ml -120 ml -660 ml Intake Oral 240 ml 1080 ml 240 ml Output Urine Total 300 ml 1200 ml 900 ml Result Diagram: 05/28/16 0555 05/27/16 1005 Imaging Last Impressions Chest X-Ray 05/27/16 1004 Signed Impressions: Service Date/Time: Friday, May 27, 2016 10:09 - CONCLUSION: The lungs are clear. Salbador Garsia MD Objective Remarks GENERAL: NAD SKIN: Warm and dry. HEAD: Normocephalic. EYES: No scleral icterus. No injection or drainage. NECK: Supple, trachea midline. No JVD or lymphadenopathy. CARDIOVASCULAR: Irregular Regular rate and rhythm without murmurs, gallops, or rubs. RESPIRATORY: Breath sounds equal bilaterally. No accessory muscle use. GASTROINTESTINAL: Abdomen soft, non-tender, nondistended. MUSCULOSKELETAL: No cyanosis, or edema. BACK: Nontender without obvious deformity. No CVA tenderness. Procedures None A/P Problem List: (1) Atrial flutter with rapid ventricular response ICD Code: I48.92 Status: Acute (2) Hypertensive emergency ICD Code: I16.1 Status: Resolved (3) Hypothyroidism ICD Code: E03.9 Status: Chronic (4) Hyperlipidemia ICD Code: E78.5 Status: Acute (5) Benign hypertension ICD Code: I10 Status: Acute Assessment and Plan 70-year-old female with Paroxysmal Atrial fibrillation /flutter with rapid ventricular response: s/p Cardizem drip . Currently on Lopressor 25 mg by mouth twice a day as well as Xarelto. cardiology ff . 2-D echo with EF of 60-% Hypertensive emergency: Resolved and currently on Lopressor 25 mg by mouth twice and Norvasc 10 mg daily. Hyperlipidemia: LDL 142 ; on [id number] mg at bedtime History of hypothyroidism: TSH and free T4 wnl, continue Synthroid DVT prophylaxis: Oc Keen MD May 29, 2016 12:10
--- NOTE | 2016-05-29 12:12 | HHI.DS ---
Discharge Summary Admission Date May 27, 2016 at 11:51 Discharge Date: May 29, 2016 Admitting Diagnosis new onset atrial flutter with rapid ventricular response (1) Atrial flutter with rapid ventricular response ICD Code: I48.92 (2) Hypertensive emergency ICD Code: I16.1 (3) Hypothyroidism ICD Code: E03.9 (4) Hyperlipidemia ICD Code: E78.5 (5) Benign hypertension ICD Code: I10 Procedures None Brief History - From Admission Everyone year-old female with a history of hypothyroidism presented to the ED for evaluation of an acute onset of worsening heart palpitations associated with chest tightness, diaphoresis and headache. Patient reports history of occasional heart palpitation however those seem to resolved on their own until today when patient had breakfast then she started feeling her heart racing associated with chest tightness rated 3/10 in intensity. She then decided to check her blood pressure, which she found to be elevated with systolic of 176. Last blood pressure check less than 2 weeks ago was 120/80s obtained with a new blood pressure device. She denies any GI bleed. CBC/BMP: 05/28/16 0555 05/27/16 1005 Significant Findings Laboratory Tests Test 05/27/16 05/27/16 05/28/16 10:05 22:34 05:55 Monocytes (%) (Auto) 10.7 % (0.0-8.0) Estimat Glomerular Filtration 77 ML/MIN (>89) Rate Troponin I LESS THAN 0.02 0.06 NG/ML NG/ML (0.02-0.05) (0.02-0.05) Cholesterol Level 228 MG/DL (120-200) LDL Cholesterol 142 MG/DL (0-99) HDL Cholesterol 62.0 MG/DL (40.0-60.0) Imaging Last Impressions Chest X-Ray 05/27/16 1004 Signed Impressions: Service Date/Time: Friday, May 27, 2016 10:09 - CONCLUSION: The lungs are clear. Salbador Garsia MD PE at Discharge GENERAL: NAD SKIN: Warm and dry. HEAD: Normocephalic. EYES: No scleral icterus. No injection or drainage. NECK: Supple, trachea midline. No JVD or lymphadenopathy. CARDIOVASCULAR: Irregular Regular rate and rhythm without murmurs, gallops, or rubs. RESPIRATORY: Breath sounds equal bilaterally. No accessory muscle use. GASTROINTESTINAL: Abdomen soft, non-tender, nondistended. MUSCULOSKELETAL: No cyanosis, or edema. BACK: Nontender without obvious deformity. No CVA tenderness. Hospital Course Patient admitted secondary to atrial fibrillation rapid ventricular response for which ACS was ruled out per protocol and cardiology consulted. She was started initially on Cardizem drip which was subsequently discontinued and patient placed on Lopressor 50 mg twice a day for treatment as well as hypertensive urgency. However secondary to bradycardia Lopressor was decreased to 25 mg twice a day and patient was started on Norvasc 10 mg daily. Statin therapy was also started as patient was placed on Lipitor 80 mg at bedtime. She remained stable prior to discharge. Patient will need outpatient follow-up with cardiology for nuclear stress test. Pt Condition on Discharge: Stable Discharge Disposition: Discharge Home Discharge Time: <= 30 minutes Discharge Instructions DIET: Follow Instructions for: Heart Healthy Diet Activities you can perform: Regular-No Restrictions Follow up Referrals: Cardiology PCP Follow-up - 1 Week New Medications: Amlodipine (Norvasc) 10 Mg Tab 10 MG PO DAILY Blood Pressure Management #30 Ref 3 TAB Atorvastatin (Atorvastatin) 20 Mg Tab 80 MG PO HS Cholesterol Management #30 Ref 3 TAB Metoprolol Tartrate (Metoprolol Tartrate) 25 Mg Tab 25 MG PO Q12HR Blood Pressure Management #60 TAB Rivaroxaban (Xarelto) 20 Mg Tab 20 MG PO DAILY Stroke Prevention #30 Ref 3 TAB Continued Medications: Fish Oil-Cholecalciferol (Fish Oil + D3) 1,200-1,000 Mg-Unit Cap 1 CAP PO DAILY Nutritional Supplement #30 Ref 0 CAP Levothyroxine (Synthroid) 100 Mcg Tab 100 MCG PO DAILY Thyroid #30 Ref 0 TAB Multiple Vitamin (Multiple Vitamin) 1 Tab 1 TAB PO DAILY Nutritional Supplement Ref 0 TAB Oc Jc MD May 29, 2016 12:12
== END 2016-05-29 12:40 | disposition home or self-care (01) | DRG 309 ==
LOC: NEPC 09:40 → NEDA 11:51 → HCIS 13:19
PROVIDERS: ADMIT Hospitalist; ATTEND Hospitalist
DX: I48.92 Unspecified atrial flutter (principal); I16.1 Hypertensive emergency; I45.10 Unspecified right bundle-branch block; E03.9 Hypothyroidism, unspecified; I20.9 Angina pectoris, unspecified; I10 Essential (primary) hypertension; I48.0 Paroxysmal atrial fibrillation; E78.5 Hyperlipidemia, unspecified; R00.1 Bradycardia, unspecified
CPT/HCPCS: 71010; 80053; 80061; 82550; 83036; 83735; 84439; 84443; 84484; 85025; 85027; 85610; 85730; 93005; 93306; 96365; 96376; J0360; J1650